=== PATIENT | female | born 1995 | race Caucasian/White ===

== ENCOUNTER 2017-06-14 18:56 | Emergency (ER) | payer OTHER ==
[~2017-06-14] VITALS: Ht 152.4 cm; Wt 63.5 kg
[~2017-06-14 18:56] MED LIST: CHATEAL1 EACH; FLAGYL500 MG PO; LOESTRIN1 EAC1; PREDNISONE50 MG PO; PROMETHAZINE-D120 ML PO; TRAMADOL 50 MG50 MG PO
[2017-06-14 19:37] VITALS: BP 118/78
== END 2017-06-14 19:38 | disposition home or self-care (01) ==
LOC: M.ERS 18:56
DX: J02.9 Acute pharyngitis, unspecified (principal); Z98.890 Other specified postprocedural states; Z88.1 Allergy status to other antibiotic agents; Z88.5 Allergy status to narcotic agent

== ENCOUNTER 2018-08-04 08:41 | Emergency (ER) | payer OTHER ==
[~2018-08-04] VITALS: Ht 152.4 cm; Wt 63.5 kg
[2018-08-04 09:02] LABS: URINE BILIRUBIN NEGATIVE (Negative); URINE BLOOD 2+ (Negative); URINE COLOR YELLOW; URINE GLUCOSE-RANDOM NEGATIVE (Negative); URINE KETONES NEGATIVE (Negative); URINE LEUKOCYTES-REFLEX 1+ (Negative); URINE NITRITE-REFLEX NEGATIVE (Negative); URINE PROTEIN NEGATIVE (Negative); URINE UROBILINOGEN 0.2 E.U./dl (0.2-1.0)
[2018-08-04 09:04] LABS: URINE CLARITY SL CLOUDY
[2018-08-04 09:26] LABS: SQUAMOUS >10 Many /LPF (0-3)
[2018-08-04 09:27] LABS: CASTS None Seen /LPF (None Seen); CRYSTALS None Seen /LPF (None Seen); URINE RBC 3-10 Few /HPF (0-2); URINE WBC-REFLEX 6-15 Few /HPF (0-5)
[2018-08-04] MEDS ORDERED: IBUPROFEN 800800 MG PO (09:58)
[2018-08-04] MEDS ORDERED: TUSSIONEX PENN115 ML PO (09:58)
[2018-08-04] MEDS ORDERED: PREFERA OB TAB1 EACH PO (12:16)
[2018-08-04 12:26] VITALS: BP 116/62
== END 2018-08-04 12:28 | disposition home or self-care (01) ==
LOC: M.ERS 08:41
PROVIDERS: Personal Emergency Response Attendant
DX: Z34.90 Encounter for supervision of normal pregnancy, unspecified, unspecified trimester (principal); F17.200 Nicotine dependence, unspecified, uncomplicated; Z88.1 Allergy status to other antibiotic agents; Z88.5 Allergy status to narcotic agent

== ENCOUNTER 2018-09-26 09:04 | Emergency (ER) | payer OTHER ==
[~2018-09-26] VITALS: Ht 152.4 cm; Wt 65.8 kg
[~2018-09-26 09:04] MED LIST changes: +IBUPROFEN 800800 MG PO; +PREFERA OB TAB1 EACH PO; +TUSSIONEX PENN115 ML PO
[2018-09-26 09:45] LABS: INFLUENZA A ANTIGEN None Detected (None Detect); INFLUENZA B ANTIGEN None Detected (None Detect)
[2018-09-26 10:29] LABS: ABSOLUTE BASOPHILS 0.1 thou/uL (0.0-0.2); ABSOLUTE EOSINOPHILS 0.1 thou/uL (0.0-0.7); ABSOLUTE LYMPHOCYTES 1.9 thou/uL (0.8-5.3); ABSOLUTE MONOCYTES 0.5 thou/uL (0.0-1.2); ABSOLUTE NEUTROPHILS 5.1 thou/uL (1.6-8.1); BASOPHILS 0.9 %; EOSINOPHILS 1.4 %; HEMATOCRIT 37.1 % (37.0-47.0); HEMOGLOBIN 12.5 gm/dL (12.0-15.0); LYMPHOCYTES 24.4 %; MCHC 33.8 g/dL (28.0-37.0); MCV 82.8 fL (80.0-100.0); MONOCYTES 6.8 %; NUCLEATED RBCS 0 /100WBC; PLATELET COUNT* 328 thou/uL (150-400); POLYS 66.5 %; RBC 4.48 mil/uL (4.20-5.00); RDW-CV 12.7 % (10.5-14.5); WBC 7.7 thou/uL (4.0-11.0)
[2018-09-26 10:40] LABS: CALCIUM 9.2 mg/dL (8.5-10.1); CREATININE 0.6 mg/dL (0.6-1.3); POTASSIUM 3.5 mmol/L (3.5-5.1); TOTAL BILIRUBIN 0.1 mg/dL (<0.1-1.0); TOTAL PROTEIN 6.6 g/dL (6.4-8.2)
[2018-09-26 11:12] VITALS: BP 118/55
[2018-09-26 11:15] LABS: URINE BILIRUBIN NEGATIVE (Negative); URINE BLOOD NEGATIVE (Negative); URINE CLARITY CLEAR; URINE COLOR YELLOW; URINE GLUCOSE-RANDOM NEGATIVE (Negative); URINE KETONES NEGATIVE (Negative); URINE LEUKOCYTES-REFLEX NEGATIVE (Negative); URINE NITRITE-REFLEX NEGATIVE (Negative); URINE PROTEIN NEGATIVE (Negative); URINE SPECIFIC GRAVITY 1.025 (1.005-1.030); URINE UROBILINOGEN 0.2 E.U./dl (0.2-1.0)
== END 2018-09-26 11:15 | disposition home or self-care (01) ==
LOC: M.ERS 09:04
PROVIDERS: Personal Emergency Response Attendant
DX: O98.511 Other viral diseases complicating pregnancy, first trimester (principal); B34.9 Viral infection, unspecified; F17.210 Nicotine dependence, cigarettes, uncomplicated; Z88.1 Allergy status to other antibiotic agents; Z88.5 Allergy status to narcotic agent; Z90.89 Acquired absence of other organs; Z3A.13 13 weeks gestation of pregnancy